=== PATIENT | male | born 1990 | race Caucasian/White ===

== ENCOUNTER 2018-02-09 07:12 | Emergency (ER) | payer BC ==
[~2018-02-09] VITALS: Ht 175.3 cm; Wt 82.0 kg
[2018-02-09 08:42] LABS: BASOPHILS % 0.8 % (0.0-2.0); EOSINOPHILS % 5.1 % (0.0-5.0); HEMATOCRIT. 42.6 % (42.0-52.0); HEMOGLOBIN. 14.6 g/dL (14.0-18.0); LYMPHOCYTES % 16.1 % (20.0-50.0); MEAN CORPUSCULAR HEMOGLOBIN 31.2 pg (28.0-32.0); MEAN CORPUSCULAR VOLUME 91.4 fL (80.0-94.0); MEAN PLATELET VOLUME 9.1 fl (7.4-10.4); MONOCYTES % 4.6 % (2.0-8.0); NEUTROPHILS % 73.4 % (40.0-76.0); PLATELET 202 x1000/uL (130-400); RED BLOOD CELL COUNT 4.67 mill/uL (4.7-6.1); RED CELL DISTRIBUTION WIDTH 12.7 % (11.6-14.6)
[2018-02-09 08:51] LABS: CHLORIDE 104 mEq/L (98-107)
[2018-02-09 08:56] LABS: ETHANOL BLOOD < 10 mg/dL
[2018-02-09 11:00] LABS: CLARITY URINE CLOUDY (CLEAR); COLOR URINE DARK YELLOW (YELLOW); KETONES URINE 1+ (NEGATIVE); LEUKOCYTE ESTERASE URINE TRACE (NEGATIVE); NITRITE URINE NEGATIVE (NEGATIVE); OCCULT BLOOD URINE NEGATIVE (NEGATIVE); PH URINE 5.5 (4.5-8.0); PROTEIN URINE 2+ (NEGATIVE); SPECIFIC GRAVITY URINE 1.031 (1.005-1.030)
[2018-02-09 11:17] LABS: *AMPHETAMINES SCREEN URINE NEGATIVE (NEGATIVE); *BARBITURATES SCREEN URINE NEGATIVE (NEGATIVE); *BENZODIAZEPINES SCREEN URINE NEGATIVE (NEGATIVE); *COCAINE SCREEN URINE NEGATIVE (NEGATIVE)
[2018-02-09 11:18] LABS: CANNABINOID URINE SCREEN PRESUMTIVE POSITIVE (NEGATIVE); METHADONE URINE SCREEN NEGATIVE (NEGATIVE); OPIATES URINE SCREEN NEGATIVE (NEGATIVE); PHENCYCLIDINE URINE SCREEN NEGATIVE (NEGATIVE)
[2018-02-09] MEDS ORDERED: LIDOCAINE HCL 1% 20ML VIAL (Pyxis) INJ INFIL ONE (11:30)
[2018-02-09] MEDS ORDERED: LIDOCAINE HCL/PF 1% 10 MG/ML 5ML VIAL IJ NR (12:45)
[2018-02-09] MEDS ORDERED: TETANUS, DIPHTHERIA, PERTUSSIS VAC/PF 0.5ML (>7YR OLD) IM ONE (13:45)
[2018-02-09 14:29] VITALS: BP 111/67
== END 2018-02-09 14:40 | disposition home or self-care (01) ==
LOC: ER 07:57
DX: R55 Syncope and collapse (principal); S01.81XA Laceration without foreign body of other part of head, initial encounter; F12.10 Cannabis abuse, uncomplicated; W01.0XXA Fall on same level from slipping, tripping and stumbling without subsequent striking against object, initial encounter; Y93.89 Activity, other specified; Y92.512 Supermarket, store or market as the place of occurrence of the external cause
CPT/HCPCS: 12013; 36415; 70450; 80053; 80305; 81003; 85025; 90471; 90715; 99285; G0482; J3490

== ENCOUNTER 2021-06-25 08:39 | Emergency (ER) | payer BC ==
[~2021-06-25] VITALS: Ht 180.3 cm; Wt 80.0 kg
[2021-06-25 09:01] VITALS: BP 140/102
[2021-06-25] MEDS ORDERED: MAGNESIUM/ALUMINUM HYDROXIDE/SIMETHICONE 30ML UDC PO STA (09:05)
[2021-06-25] MEDS ORDERED: FAMOTIDINE 20MG TABLET PO ONE (09:15)
[2021-06-25] MEDS ORDERED: ONDANSETRON 4MG ODT PO ONE (09:15)
[2021-06-25 09:52] LABS: BASOPHILS % 1.3 % (0.0-2.0); EOSINOPHILS % 0.8 % (0.0-5.0); HEMOGLOBIN. 14.9 g/dL (14.0-18.0); MEAN CORPUSCULAR HEMOGLOBIN 32.6 pg (28.0-32.0); MEAN CORPUSCULAR VOLUME 96.2 fL (80.0-94.0); MONOCYTES % 6.3 % (2.0-8.0); NEUTROPHILS % 74.6 % (40.0-76.0); PLATELET 240 x1000/uL (130-400); RED BLOOD CELL COUNT 4.57 mill/uL (4.7-6.1); RED CELL DISTRIBUTION WIDTH 13.6 % (11.6-14.6)
[2021-06-25 09:59] LABS: CHLORIDE 103 mEq/L (98-107)
[2021-06-25] MEDS ORDERED: OMEP40CA20 MT (11:58)
== END 2021-06-25 13:01 | disposition home or self-care (01) ==
LOC: ER 08:39
DX: R10.13 Epigastric pain (principal); R19.7 Diarrhea, unspecified; F12.10 Cannabis abuse, uncomplicated; Z20.822 Contact with and (suspected) exposure to COVID-19; Z87.891 Personal history of nicotine dependence
CPT/HCPCS: 36415; 80053; 85025; 99283